=== PATIENT | male | born 1990 ===

== ENCOUNTER 2016-03-23 16:37 | Emergency (ER) | payer OTHER ==
[2016-03-23 16:47] VITALS: BP 141/91
--- NOTE | 2016-03-23 17:19 | RAD ---
HISTORY: Tender fifth metatarsal status post basketball injury, left foot COMPARISONS: None VIEWS: 3, Frontal, lateral, and oblique views of the left foot FINDINGS: BONE DENSITY: Normal. BONES: There is a nondisplaced fracture of the base of the fifth metatarsal, with articular extension JOINTS: There is no arthropathy. ALIGNMENT: There is no dislocation. SOFT TISSUES: Unremarkable. OTHER FINDINGS: None. IMPRESSION: NONDISPLACED FRACTURE OF THE BASE OF THE FIFTH METATARSAL.
--- NOTE | 2016-03-23 18:01 | UC ---
Malcolm Vivas SooYoung, scribed for Kaitlyn Enciso DO on 03/23/16 at 1748 . Lower Extremity/Ankle HPI - HPI Summary HPI Summary: A 26 y/o M presents to [facility] [place] with LLE pain L foot laterally onset yesterday around 2200 while playing basketball. He states he rolled his foot while running sideways. Rates pain as 1 to 2 out of 10. Aggravating factors: walking, putting pressure on the area. He notes he's still been able to drive his manual car. Denies n/v/d, fever, chills, cough, SOB, CP, abd pain. - History of Current Complaint Chief Complaint: UCLowerExtremity Stated Complaint: FOOT INJURY Hx Obtained From: Patient Onset/Duration: Sudden Onset, Lasting Hours, Still Present Severity Currently: Mild Pain Intensity: 1 Pain Scale Used: 0-10 Numeric Aggravating Factor(s): Ambulation Alleviating Factor(s): Rest Able to Bear Weight: Yes - Allergies/Home Medications Allergies/Adverse Reactions: Allergies Allergy/AdvReac Type Severity Reaction Status Date / Time No Known Allergies Allergy Verified 03/23/16 16:47 Home Medications: Home Medications Acetaminophen TAB* [Tylenol TAB*] 325 mg PO PRN 03/23/16 [History] PMH/Surg Hx/FS Hx/Imm Hx Previously Healthy: Yes Neurological History Of: Denies: Dementia - Surgical History Surgical History: None - Family History Known Family History: Positive: Hypertension, Other - pos: Crohns Negative: Cardiac Disease, Diabetes - Social History Occupation: Employed Full-time Lives: With Family Alcohol Use: Occasionally Substance Use Type: None Smoking Status (MU): Never Smoked Tobacco Review of Systems Constitutional: Negative Skin: Negative Eyes: Negative ENT: Negative Respiratory: Negative Cardiovascular: Negative Gastrointestinal: Negative Genitourinary: Negative Motor: Negative Neurovascular: Negative Musculoskeletal: Other: - pos: lateral L foot pain Neurological: Negative Psychological: Negative All Other Systems Reviewed And Are Negative: Yes Physical Exam Triage Information Reviewed: Yes Appearance: Well-Appearing, No Pain Distress, Well-Nourished Vital Signs: Initial Vital Signs Temp 97.8 F 03/23/16 16:45 Pulse 59 03/23/16 16:45 Resp 16 03/23/16 16:45 BP 141/91 03/23/16 16:45 Pulse Ox 99 03/23/16 16:45 Vital Signs Reviewed: Yes Eyes: Positive: Conjunctiva Clear. Negative: Discharge ENT: Positive: Hearing grossly normal. Negative: Muffled/hoarse voice Neck exam: Normal Neck: Positive: Supple Respiratory: Positive: Lungs clear, Normal breath sounds, No respiratory distress, No accessory muscle use Cardiovascular: Positive: RRR, No Murmur Musculoskeletal Exam: Normal Musculoskeletal: Positive: Strength Intact, Other: - POS: Tender to palpation, edema, ecchymosis on base of 5th L metatarsal Neurological: Positive: Alert, Muscle Tone Normal Psychological: Positive: Age Appropriate Behavior Skin Exam: Normal, Other - warm, dry, nml color Diagnostics - Radiology L FOOT XR Xray Interpretation: Positive (See Comments) - IMPRESSION: Nondisplaced fracture of the base of the 5th metatarsal. Radiology Interpretation Completed By: Radiologist Lower Extremity Course/Dx - Differential Dx/Diagnosis Differential Diagnosis/HQI/PQRI: Contusion, Fracture (Closed), Sprain Provider Diagnoses: 5th metatarsal fx Discharge - Discharge Plan Condition: Stable Disposition: HOME Patient Education Materials: Crutch Instructions (ED), Foot Fracture in Adults (ED) Referrals: Komal Soares MD [Medical Doctor] - 1 Day No Primary Care Phys,NOPCP [Primary Care Provider] - Additional Instructions: As we discussed: Do not put weight on that foot until cleared by orthopedist. Boot should stay in place and you should use crutches. FOLLOW-UP CARE: You should establish with a private physician for follow-up care. If you are unable to get a timely appointment, or if you are worsening, call us or return for re-evaluation. An additional resource available to assist in finding the appropriate physician for your health care needs is the [facility] Referral Center. You may contact them by calling [phone]. The documentation as recorded by the Malcolm nicholson SooYoung accurately reflects the service I personally performed and the decisions made by me, Kaitlyn Enciso DO.
== END 2016-03-23 18:10 | disposition home or self-care (01) ==
LOC: UCEAST 16:37
DX: S92.355A Nondisplaced fracture of fifth metatarsal bone, left foot, initial encounter for closed fracture (principal); X50.1XXA Overexertion from prolonged static or awkward postures, initial encounter; Y93.67 Activity, basketball; Y92.310 Basketball court as the place of occurrence of the external cause
CPT/HCPCS: 99203; G0463